=== PATIENT | female | born 1935 | race Caucasian/White ===

== ENCOUNTER 2017-12-16 18:37 | Inpatient (IN) | payer MEDICARE, OTHER ==
[~2017-12-16] VITALS: Ht 157.5 cm; Wt 61.7 kg
--- NOTE | ~2017-12-16 | OP ---
PATIENT NAME: PORTILLO KIRBY MEDICAL RECORD: [id number] :36 LOCATION:[facility] ADMISSION DATE:12/16/17 SURGEON: VAIBHAV MORALES MD DATE OF OPERATION: 12/20/2017 ANESTHESIA: Dr. Kwon. SURGEON: Vaibhav Morales MD SEAM RUBBING MACHINE OPERATOR: None. PREOPERATIVE DIAGNOSIS: Right displaced femoral neck fracture. POSTOPERATIVE DIAGNOSIS: Right displaced femoral neck fracture. PROCEDURE PERFORMED: Right hip hemiarthroplasty. ANTIBIOTICS: 2 grams of Ancef. BLOOD LOSS: 100 cc. FINDINGS: See body of the report. COMPLICATIONS: None. PATHOLOGY: None. IMPLANTS: The Patrick Accolade II system was utilized with 132 degree neck angle hip stem size #4, neck length 35 with 0 offset V40 LFIT femoral head, 26 mm OD and UHR universal head bipolar component 46 mm OD with 26 mm ID. DRAINS: None. TOURNIQUET: None. POSTOPERATIVE CONDITION: Was stable to the recovery room. Needle, sponge, and instrument counts were correct. INDICATIONS FOR THE PROCEDURE: The patient is an 82-year-old female who presented to the Emergency Room sometime [place] afternoon after a fall. She had sustained a right displaced femoral neck fracture. Medical clearance and optimization was obtained. However, she was noted to have developed a urinary tract infection, likely present upon admission. Surgery was held until the UTI was treated to prevent increased risk of infection. The patient was doing well today with respect to her UTI and had been treated for several days with PO antibiotics She was then taken to the operating room today for definitive surgical treatment. This was done after discussing risks, benefits, alternatives and complications of the procedure and answering her questions. She consented for the procedure and informed consent was obtained and placed in the chart. PROCEDURE IN DETAIL: The patient was brought back to the operating room, placed supine on the operative table where spinal anesthesia was provided by the general anesthesia department. She was then placed into the lateral position with the right hip exposed using a beanbag. The right lower extremity was then elevated, prepped and draped in the usual sterile fashion. A pillow had been OPERATIVE REPORT [id number] PORTILLO KIRBY placed between the left and right knees prior to prepping and draping the limb. A planned incision for posterior approach to the right hip was marked off on the skin. An Ioban was utilized to encircle the right lower extremity to prevent communication of the skin and groin with the operative site during the procedure. At this time, the incision was made along the planned posterior approach. This was a curvilinear incision from the PSIS aiming gently towards the posterior aspect of the greater trochanter and the proximal femoral shaft. The incision was taken down through subcutaneous tissues and bleeders were cauterized on the way until the gluteus mireya fascia and fascia altagracia were identified. In line with the curvilinear incision, the fascia was incised. The gluteus mireya muscle fibers were split in line with the incision and the tensor fascia altagracia was opened to expose the short external rotators, gluteus medius, and the quadratus as well as the insertion of the gluteus mireya tendon on the proximal femur. Fracture hematoma was identified as well as the fat encircling the sciatic nerve. The piriformis and short external rotators were identified and taken down. These were tagged. A T-capsulotomy was then performed and both leaflets of the capsule were tagged as well. This was done for future repair of the capsule and the short external rotators. At this point, the femoral head was identified as well as the displaced neck fracture. The displaced femoral neck fracture was presented and the bone cut was performed in usual fashion. Following this, the femoral head was removed and sized to 46-mm. This was trialled and confirmed. Following trialing, the proximal femur was opened and the canal finder was inserted. Following this, serial broaching was done up to a good fit at a size #4. The size #4 implant was then selected and placed in the usual technique into the proximal femur. Following this, the 48 head was trialled. Comparing limb lengths, they were found to be symmetrical and a stable construct was confirmed. The hip was then disclocated and the trial was removed. The femoral head components were then applied. The joint was then relocated and again tested and found to be stable with symmetrical limb lengths by ranging and by palpating the knee specifically the patella at the heel and the sole of the foot as well comparing the right lower extremity to the left. This was done after removing the pillow, which had the 2 limbs to ensure an accurate comparison. Copious irrigation of the joint was then carried out followed by closure of the capsule and repair of the short external rotators through drill holes along the posterior aspect of the proximal femur. Copious irrigation was carried out again followed by closure of the gluteus mireya fascia and the fascia altagracia. This was done using a running barbed suture. A watertight seal was obtained. Copious irrigation was carried out again and using a barbed suture, a watertight seal of the subcutaneous fat utilizing Gordo's fascia was performed. Copious irrigation was carried out again and closure was done of the remaining subcutaneous tissues superior to Gordo's fascia using Vicryl. Skin was closed with daron. A sterile dressing was applied. The patient was placed supine on the table, was in stable condition, and brought to the recovery room. TRANSINT:[id number] Voice Confirmation ID: [id number] DOCUMENT ID: [id number] OPERATIVE REPORT [id number] PORTILLO KIRBY ANDREW M MD at 2150 CC: [id number] DICTATION DATE: 12/20/17 183 MANAGER OF LEARNING: 12/20/17 2311 ADM IN [facility] [address] [place] [address]
[2017-12-17] VITALS: BP 158/76; BP 159/77
[2017-12-17 00:57] VITALS: BP 159/77; BMI 24.9
[2017-12-17 04:00] VITALS: BP 158/76
[2017-12-17 08:17] VITALS: BP 147/68
[2017-12-17 10:38] VITALS: Ht 157.5 cm; Wt 61.7 kg
[2017-12-17 20:00] VITALS: BP 174/79
[2017-12-17 20:05] LABS: APPEARANCE HAZY (CLEAR); BILIRUBIN NEGATIVE (NEGATIVE); COLOR YELLOW (YELLOW); GLUCOSE NEGATIVE (NEGATIVE); KETONE NEGATIVE (NEGATIVE); NITRITE POSITIVE (NEGATIVE); PROTEIN TRACE mg/dL (NEGATIVE); SPECIFIC GRAVITY 1.015 (1.005-1.020); UROBILINOGEN NORMAL (NORMAL)
[2017-12-17 20:06] LABS: EPITHELIAL CELLS 0-5 /hpf (0-5); RED CELLS - URINE 0-5 /hpf (0-5); WHITE CELLS - URINE 0-5 /hpf (0-5)
[2017-12-17 20:07] LABS: BACTERIA MANY /hpf (NONE SEEN)
[2017-12-18] VITALS: BP 164/88
[2017-12-18 04:00] VITALS: BP 158/83
[2017-12-18 05:40] LABS: BASOPHILS 0.1 % (0-2); EOSINOPHILS 0.3 % (0-7); HEMATOCRIT 34.7 % (36.0-48.0); HEMOGLOBIN 11.8 g/dL (12-16); IMMATURE GRANULOCYTES 0.3 % (0-5); MCH 33.5 pg (26.0-34.0); MCV 98.6 fL (80.0-100.0); MEAN PLATELET VOLUME 10.6 fL (7.4-10.4); MONOCYTES 7.9 % (2-11); NEUTROPHILS 82.4 % (40-80); PLATELET COUNT 211 10x3/uL (130-400); RBC 3.52 10x6/uL (4.00-5.40); RDW 12.5 % (11.5-14.5); WBC 14.8 10x3/uL (4.8-10.8)
[2017-12-18 06:01] LABS: ALBUMIN 2.8 g/dL (3.4-5.0); ANION GAP 11.3 mmol/L (8-16); BILIRUBIN - TOTAL 0.69 mg/dL (0.2-1.3); CALCIUM 8.2 mg/dL (8.5-10.1); CARBON DIOXIDE 26.3 mmol/L (21.0-32.0); CREATININE - SERUM 0.9 mg/dL (0.6-1.3); POTASSIUM - SERUM 3.6 mmol/L (3.5-5.1); PROTEIN - SERUM 6.5 g/dL (6.4-8.2)
[2017-12-18 13:26] VITALS: BP 135/67
[2017-12-18] MEDS ORDERED: NAMENDA10 MG PO (17:47)
[2017-12-18] MEDS ORDERED: OXYBUTYNIN CHLOR5 MG PO (17:47)
[2017-12-18] MEDS ORDERED: ARICEPT10 MG PO (17:48)
[2017-12-18] MEDS ORDERED: SYNTHROID50 MCG PO (17:48)
[2017-12-18 20:00] VITALS: BP 162/79
[2017-12-19] VITALS: BP 162/79
[2017-12-19 04:00] VITALS: BP 167/83
[2017-12-19 05:07] LABS: BASOPHILS 0.1 % (0-2); EOSINOPHILS 1.3 % (0-7); HEMATOCRIT 35.1 % (36.0-48.0); HEMOGLOBIN 11.9 g/dL (12-16); IMMATURE GRANULOCYTES 0.2 % (0-5); LYMPHOCYTES 10.6 % (15-50); MCH 33.8 pg (26.0-34.0); MCHC 33.9 g/dL (31.0-37.0); MCV 99.7 fL (80.0-100.0); MEAN PLATELET VOLUME 10.6 fL (7.4-10.4); MONOCYTES 9.7 % (2-11); NEUTROPHILS 78.1 % (40-80); PLATELET COUNT 204 10x3/uL (130-400); RBC 3.52 10x6/uL (4.00-5.40); RDW 12.6 % (11.5-14.5); WBC 11.9 10x3/uL (4.8-10.8)
[2017-12-19 05:28] LABS: ALBUMIN 2.6 g/dL (3.4-5.0); ALKALINE PHOSPHATASE 54 U/L (46-116); ALT (SGPT) 20 U/L (10-68); BILIRUBIN - TOTAL 0.76 mg/dL (0.2-1.3); CALC OSMOLALITY 276 mosm/kg (275-300); CALCIUM 7.8 mg/dL (8.5-10.1); CARBON DIOXIDE 26.6 mmol/L (21.0-32.0); CHLORIDE - SERUM 106 mmol/L (98-107); CREATININE - SERUM 0.7 mg/dL (0.6-1.3); GLUCOSE 106 mg/dL (74-106); POTASSIUM - SERUM 3.5 mmol/L (3.5-5.1); PROTEIN - SERUM 6.5 g/dL (6.4-8.2); SODIUM 139 mmol/L (136-145); eGFR NON AFRICAN AMERICAN 85 mL/min (90-120)
[2017-12-19 05:29] LABS: UREA NITROGEN 9 mg/dL (7-18)
[2017-12-19 06:28] LABS: APPEARANCE HAZY (CLEAR); BACTERIA MODERATE /hpf (NONE SEEN); BILIRUBIN NEGATIVE (NEGATIVE); COLOR YELLOW (YELLOW); EPITHELIAL CELLS 0-5 /hpf (0-5); GLUCOSE NEGATIVE (NEGATIVE); KETONE NEGATIVE (NEGATIVE); NITRITE NEGATIVE (NEGATIVE); PROTEIN NEGATIVE (NEGATIVE); SPECIFIC GRAVITY 1.015 (1.005-1.020)
[2017-12-19 06:29] LABS: MUCUS <1+ /lpf (NONE SEEN)
[2017-12-19 08:21] VITALS: BP 147/82
[2017-12-19 22:20] VITALS: BP 128/69
[2017-12-20 01:22] VITALS: BP 152/79
[2017-12-20 04:45] VITALS: BP 138/78
[2017-12-20 06:00] LABS: BASOPHILS 0.1 % (0-2); HEMATOCRIT 35.9 % (36.0-48.0); HEMOGLOBIN 12.1 g/dL (12-16); IMMATURE GRANULOCYTES 0.2 % (0-5); LYMPHOCYTES 12.6 % (15-50); MCH 33.4 pg (26.0-34.0); MCHC 33.7 g/dL (31.0-37.0); MCV 99.2 fL (80.0-100.0); MEAN PLATELET VOLUME 10.5 fL (7.4-10.4); MONOCYTES 9.6 % (2-11); NEUTROPHILS 76.5 % (40-80); PLATELET COUNT 209 10x3/uL (130-400); RBC 3.62 10x6/uL (4.00-5.40); RDW 12.3 % (11.5-14.5); WBC 12.4 10x3/uL (4.8-10.8)
[2017-12-20 06:22] LABS: ALBUMIN 2.5 g/dL (3.4-5.0); ANION GAP 10.3 mmol/L (8-16); BILIRUBIN - TOTAL 0.7 mg/dL (0.2-1.3); CALCIUM 7.9 mg/dL (8.5-10.1); CARBON DIOXIDE 26.2 mmol/L (21.0-32.0); CREATININE - SERUM 0.8 mg/dL (0.6-1.3); POTASSIUM - SERUM 3.5 mmol/L (3.5-5.1); PROTEIN - SERUM 6.5 g/dL (6.4-8.2)
[2017-12-20 07:19] LABS: APPEARANCE HAZY (CLEAR); COLOR STRAW (YELLOW); GLUCOSE NEGATIVE (NEGATIVE); KETONE NEGATIVE (NEGATIVE); NITRITE NEGATIVE (NEGATIVE); PROTEIN NEGATIVE (NEGATIVE); SPECIFIC GRAVITY 1.005 (1.005-1.020); UROBILINOGEN NORMAL (NORMAL)
[2017-12-20 07:20] LABS: BACTERIA FEW /hpf (NONE SEEN); BILIRUBIN NEGATIVE (NEGATIVE); EPITHELIAL CELLS 0-5 /hpf (0-5); RED CELLS - URINE 0-5 /hpf (0-5); WHITE CELLS - URINE OCC /hpf (0-5)
[2017-12-20 15:04] VITALS: BP 147/74
[2017-12-20 19:08] VITALS: BP 130/73
[2017-12-20 20:24] VITALS: BP 155/80
[2017-12-21 00:16] VITALS: BP 139/66
[2017-12-21 05:05] VITALS: BP 139/69
[2017-12-21 05:35] LABS: BASOPHILS 0.1 % (0-2); EOSINOPHILS 0 % (0-7); HEMATOCRIT 29.9 % (36.0-48.0); IMMATURE GRANULOCYTES 0.3 % (0-5); LYMPHOCYTES 4.9 % (15-50); MCH 33.1 pg (26.0-34.0); MCHC 33.4 g/dL (31.0-37.0); MEAN PLATELET VOLUME 10.2 fL (7.4-10.4); MONOCYTES 9.7 % (2-11); PLATELET COUNT 169 10x3/uL (130-400); RBC 3.02 10x6/uL (4.00-5.40); RDW 12.4 % (11.5-14.5); WBC 12.9 10x3/uL (4.8-10.8)
[2017-12-21 06:52] LABS: BILIRUBIN - TOTAL 0.73 mg/dL (0.2-1.3); CALCIUM 7.6 mg/dL (8.5-10.1); CARBON DIOXIDE 25.1 mmol/L (21.0-32.0); CREATININE - SERUM 0.9 mg/dL (0.6-1.3); PROTEIN - SERUM 5.6 g/dL (6.4-8.2)
[2017-12-21 07:35] LABS: ANION GAP 14.4 mmol/L (8-16); POTASSIUM - SERUM 3.5 mmol/L (3.5-5.1)
[2017-12-21 08:15] VITALS: BP 118/70
[2017-12-21 12:26] VITALS: BP 121/62
[2017-12-21 16:25] VITALS: BP 135/67
[2017-12-21 21:54] VITALS: BP 119/61
[2017-12-22 01:01] VITALS: BP 124/64
[2017-12-22 04:47] VITALS: BP 128/74
[2017-12-22 06:53] LABS: BASOPHILS 0.1 % (0-2); EOSINOPHILS 1.8 % (0-7); HEMATOCRIT 28.3 % (36.0-48.0); HEMOGLOBIN 9.5 g/dL (12-16); IMMATURE GRANULOCYTES 0.2 % (0-5); LYMPHOCYTES 7.5 % (15-50); MCH 33.1 pg (26.0-34.0); MCHC 33.6 g/dL (31.0-37.0); MCV 98.6 fL (80.0-100.0); MEAN PLATELET VOLUME 11.1 fL (7.4-10.4); MONOCYTES 7.5 % (2-11); NEUTROPHILS 82.9 % (40-80); PLATELET COUNT 165 10x3/uL (130-400); RBC 2.87 10x6/uL (4.00-5.40); RDW 12.5 % (11.5-14.5); WBC 13.4 10x3/uL (4.8-10.8)
[2017-12-22 06:59] LABS: ALBUMIN 1.9 g/dL (3.4-5.0); ANION GAP 12.4 mmol/L (8-16); BILIRUBIN - TOTAL 0.38 mg/dL (0.2-1.3); CALCIUM 7.4 mg/dL (8.5-10.1); CARBON DIOXIDE 25.1 mmol/L (21.0-32.0); CREATININE - SERUM 0.8 mg/dL (0.6-1.3); POTASSIUM - SERUM 3.5 mmol/L (3.5-5.1); PROTEIN - SERUM 5.1 g/dL (6.4-8.2)
[2017-12-22 07:57] VITALS: BP 132/71
[2017-12-22 12:01] VITALS: BP 130/65
[2017-12-22 16:02] VITALS: BP 122/60
[2017-12-22 21:03] VITALS: BP 130/68
[2017-12-23 00:58] VITALS: BP 148/64
[2017-12-23 04:55] VITALS: BP 154/68
[2017-12-23 08:02] VITALS: BP 135/63
[2017-12-23] MEDS ORDERED: ELIQUIS2.5 MG PO (10:07)
[2017-12-23] MEDS ORDERED: HYDROCODONE-APA1 TAB PO (10:14)
[2017-12-23 13:24] VITALS: BP 123/64
[2017-12-23] MEDS ORDERED: LEVAQUIN500 MG PO (15:21)
== END 2017-12-23 15:44 | DRG 470 ==
LOC: D.ER 18:37 → D.MS 21:06
PROVIDERS: Family Medicine; Orthopaedic Surgery Foot and Ankle Surgery
PROC: 0SRR0JZ Replacement of Right Hip Joint, Femoral Surface with Synthetic Substitute, Open Approach (ICD-10-PCS; principal; 2017-12-20 07:30)
DX: S72.001A Fracture of unspecified part of neck of right femur, initial encounter for closed fracture (principal); N39.0 Urinary tract infection, site not specified; J98.11 Atelectasis; E03.9 Hypothyroidism, unspecified; F01.50 Vascular dementia, unspecified severity, without behavioral disturbance, psychotic disturbance, mood disturbance, and anxiety; W01.0XXA Fall on same level from slipping, tripping and stumbling without subsequent striking against object, initial encounter; S30.820A Blister (nonthermal) of lower back and pelvis, initial encounter

== ENCOUNTER 2018-03-31 12:16 | Inpatient (IN) | payer MEDICARE, OTHER ==
[~2018-03-31] VITALS: Ht 157.5 cm; Wt 63.6 kg
[~2018-03-31 12:16] MED LIST: ARICEPT10 MG PO; ELIQUIS2.5 MG PO; HYDROCODONE-APA1 TAB PO; LEVAQUIN500 MG PO; NAMENDA10 MG PO; OXYBUTYNIN CHLOR5 MG PO; SYNTHROID50 MCG PO
[2018-03-31 14:40] LABS: APPEARANCE CLOUDY (CLEAR); BACTERIA MANY /hpf (NONE SEEN); BILIRUBIN NEGATIVE (NEGATIVE); COLOR YELLOW (YELLOW); EPITHELIAL CELLS 0-5 /hpf (0-5); GLUCOSE NEGATIVE (NEGATIVE); KETONE NEGATIVE (NEGATIVE); MUCUS <1+ /lpf (NONE SEEN); NITRITE POSITIVE (NEGATIVE); PROTEIN TRACE mg/dL (NEGATIVE); UROBILINOGEN NORMAL (NORMAL)
[2018-03-31 14:51] LABS: BASOPHILS 0.1 % (0-2); EOSINOPHILS 0.3 % (0-7); HEMATOCRIT 37.4 % (36.0-48.0); HEMOGLOBIN 12.6 g/dL (12-16); IMMATURE GRANULOCYTES 0.3 % (0-5); MCH 32.4 pg (26.0-34.0); MCHC 33.7 g/dL (31.0-37.0); MCV 96.1 fL (80.0-100.0); MEAN PLATELET VOLUME 10.4 fL (7.4-10.4); MONOCYTES 4.7 % (2-11); NEUTROPHILS 79.6 % (40-80); RBC 3.89 10x6/uL (4.00-5.40)
[2018-03-31 14:53] LABS: PLATELET COUNT 266 10x3/uL (130-400)
[2018-03-31 14:56] LABS: APTT 27.8 SECONDS (22.8-39.4); INR 1.03 (0.85-1.17); PROTIME 13.1 SECONDS (11.6-15.0)
[2018-03-31 14:57] LABS: D-DIMER-QUANTITATIVE 0.85 ug/mLFEU (0.20-0.54)
[2018-03-31 15:03] LABS: ALBUMIN 3.8 g/dL (3.4-5.0); ALKALINE PHOSPHATASE 66 U/L (46-116); ALT (SGPT) 22 U/L (10-68); BILIRUBIN - TOTAL 0.36 mg/dL (0.2-1.3); CALC OSMOLALITY 281 mosm/kg (275-300); CALCIUM 8.4 mg/dL (8.5-10.1); CARBON DIOXIDE 29.4 mmol/L (21.0-32.0); CHLORIDE - SERUM 101 mmol/L (98-107); GLUCOSE 113 mg/dL (74-106); POTASSIUM - SERUM 3.6 mmol/L (3.5-5.1); PROTEIN - SERUM 7.6 g/dL (6.4-8.2); SODIUM 139 mmol/L (136-145); UREA NITROGEN 20 mg/dL (7-18); eGFR NON AFRICAN AMERICAN 56 mL/min (90-120)
[2018-03-31 15:16] LABS: CKMB 1.3 U/L (0.0-3.6); CREATINE KINASE 97 UL (21-215); THYROID STIMULATING HORMONE 2.65 uIU/mL (0.36-3.74)
[2018-03-31 15:20] LABS: TROPONIN-I < 0.017 ng/mL (0.000-0.060)
[2018-03-31 19:50] VITALS: BP 149/70
[2018-04-01] VITALS (7 sets, daily range): BP systolic 118–156; BP diastolic 67–75; Ht 157.5 cm; Wt 63.6 kg
[2018-04-01 06:49] LABS: BASOPHILS 0.2 % (0-2); EOSINOPHILS 1.4 % (0-7); HEMATOCRIT 35.5 % (36.0-48.0); HEMOGLOBIN 12.1 g/dL (12-16); IMMATURE GRANULOCYTES 0.4 % (0-5); LYMPHOCYTES 23.8 % (15-50); MCH 32.5 pg (26.0-34.0); MCHC 34.1 g/dL (31.0-37.0); MCV 95.4 fL (80.0-100.0); MONOCYTES 8.4 % (2-11); NEUTROPHILS 65.8 % (40-80); PLATELET COUNT 232 10x3/uL (130-400); RBC 3.72 10x6/uL (4.00-5.40)
[2018-04-01 06:56] LABS: WBC 8.1 10x3/uL (4.8-10.8)
[2018-04-01 07:14] LABS: ANION GAP 11.4 mmol/L (8-16); CALCIUM 8.1 mg/dL (8.5-10.1); CARBON DIOXIDE 27.2 mmol/L (21.0-32.0); CREATININE - SERUM 0.8 mg/dL (0.6-1.3); MAGNESIUM - SERUM 1.9 mg/dL (1.8-2.4); POTASSIUM - SERUM 3.6 mmol/L (3.5-5.1); THYROID STIMULATING HORMONE 2.5 uIU/mL (0.36-3.74)
[2018-04-02] VITALS: BP 166/80
[2018-04-02 04:00] VITALS: BP 154/91
[2018-04-02 08:25] VITALS: BP 182/86
[2018-04-02] MEDS ORDERED: CIPRO500 MG PO (10:20)
== END 2018-04-02 12:57 | disposition home or self-care (01) | DRG 690 ==
LOC: D.ER 12:16 → D.MS 17:20 → OBSVTIME 17:20 → D.MS 17:20
PROVIDERS: Family Medicine
DX: N39.0 Urinary tract infection, site not specified (principal); B96.20 Unspecified Escherichia coli [E. coli] as the cause of diseases classified elsewhere; E03.9 Hypothyroidism, unspecified; F01.50 Vascular dementia, unspecified severity, without behavioral disturbance, psychotic disturbance, mood disturbance, and anxiety; Z86.73 Personal history of transient ischemic attack (TIA), and cerebral infarction without residual deficits